=== PATIENT | male | born 1980 | race Caucasian/White ===

== ENCOUNTER 2021-01-20 07:44 | Emergency (ER) | payer MEDICAID ==
[~2021-01-20] VITALS: Ht 170.2 cm; Wt 80.0 kg
[2021-01-20 08:21] LABS: BASOPHILS % (AUTO) 1 % (0-1); EOSINOPHILS % (AUTO) 1 % (1-7); LYMPHOCYTES % (AUTO) 14 % (22-44); MEAN CORPUSCULAR HEMOGLOBIN 32.7 pg (27.5-34.5); MEAN CORPUSCULAR HGB CONC 35.5 g/dL (33.2-36.2); MEAN PLATELET VOLUME 7.7 fL (7.4-10.4); MONOCYTES % (AUTO) 5 % (2-9); NEUTROPHILS % (AUTO) 80 % (42-75); PLATELET COUNT 187 x10^3/uL (130-400); RED BLOOD COUNT 5.19 x10^6/uL (4.38-5.82); RED CELL DISTRIBUTION WIDTH 12.6 % (9.4-14.8)
[2021-01-20 08:33] LABS: ALBUMIN 3.7 g/dL (3.4-5.0); ANION GAP 6 mmol/L (5-15); CALCIUM 7.8 mg/dL (8.5-10.1); CHLORIDE 108 mmol/L (98-107); CREATININE 1.01 mg/dL (0.7-1.3)
[2021-01-20 08:37] LABS: ALKALINE PHOSPHATASE 95 U/L (45-117); BILIRUBIN,TOTAL 0.6 mg/dL (0.2-1.0); TOTAL PROTEIN 7.1 g/dL (6.4-8.2); TROPONIN I < 0.015 ng/mL (0.000-0.045)
[2021-01-20 08:40] LABS: ALANINE AMINOTRANSFERASE 42 U/L (12-78)
--- NOTE | 2021-01-20 09:19 | NUR ---
PT AMBULATES WELL TO BATHROOM. NAD NOTED AT THIS TIME. AWAITING REPEAT TROP.
--- NOTE | 2021-01-20 09:25 | NUR ---
LAB AT BEDSIDE FOR REPEAT TROPONIN DRAW.
[2021-01-20 09:56] LABS: TROPONIN I < 0.015 ng/mL (0.000-0.045)
--- NOTE | 2021-01-20 10:19 | NUR ---
PT CHART UP FOR RECHECK. PT WATCHING TELEVISION, NAD NOTED AT THIS TIME. PT REQUESTS PO NUTRITION. AWARE OF NEED TO WAIT FOR ERMD EVALUATION.
[2021-01-20 11:10] VITALS: BP 111/75
== END 2021-01-20 11:18 | disposition home or self-care (01) ==
LOC: ED 10:10
DX: R07.89 Other chest pain (principal); Z87.891 Personal history of nicotine dependence
CPT/HCPCS: 36415; 71045; 80053; 83690; 84484; 85025; 93005; 99285